=== PATIENT | female | born 1970 | race Caucasian/White ===

== ENCOUNTER 2016-05-21 11:23 | Emergency (ER) | payer MEDICAID, OTHER ==
[~2016-05-21] VITALS: Ht 160 cm; Wt 60.7 kg
[2016-05-21 11:25] VITALS: BP 116/67
[2016-05-21] MEDS ORDERED: FLUORESCEIN OPHTHALMIC 1 MG STRIP ONE (11:56)
[2016-05-21] MEDS ORDERED: PROPARACAINE OPHTH 0.5%, 15ML ONE (11:56)
== END 2016-05-21 12:27 | disposition home or self-care (01) ==
LOC: ED 12:21
DX: H10.233 Serous conjunctivitis, except viral, bilateral (principal); J01.00 Acute maxillary sinusitis, unspecified; R05 Cough; J02.9 Acute pharyngitis, unspecified; J34.89 Other specified disorders of nose and nasal sinuses
CPT/HCPCS: 99283

== ENCOUNTER 2016-07-26 06:04 | Emergency (ER) | payer MEDICAID ==
[~2016-07-26] VITALS: Ht 160 cm; Wt 57.0 kg
[2016-07-26] MEDS ORDERED: BACITRACIN ZINC OINT 500U/GM, 0.9 GM ONE (06:57)
[2016-07-26 07:36] VITALS: BP 135/82
== END 2016-07-26 07:38 | disposition home or self-care (01) ==
LOC: ED 07:35
DX: S90.822A Blister (nonthermal), left foot, initial encounter (principal); X58.XXXA Exposure to other specified factors, initial encounter; Y93.89 Activity, other specified; Y99.8 Other external cause status; Y92.89 Other specified places as the place of occurrence of the external cause
CPT/HCPCS: 99281

== ENCOUNTER 2019-03-21 22:52 | Inpatient (IN) | payer MEDICAID, OTHER ==
[~2019-03-21] VITALS: Ht 160 cm; Wt 49.5 kg
[2019-03-21] MEDS ORDERED: VANCOMYCIN PMX 1GM/200ML 200 ML IV ONE (23:45)
[2019-03-22] MEDS ORDERED: SODIUM CHLORIDE FLUSH 10ML SYR IVF ONE
[2019-03-22] MEDS ORDERED: SODIUM CHLORIDE 0.9% 1,000ML IVBOLUS ONE
[2019-03-22] MEDS ORDERED: CEFAZOLIN PMX 1GM/50ML 50 ML IV ONE
[2019-03-22] MEDS ORDERED: VANCOMYCIN PER PHARMACY MC ONE
[2019-03-22] MEDS ORDERED: LIDOCAINE-MPF 1%, 5ML INFIL ONE
[2019-03-22] MEDS ORDERED: LIDOCAINE-MPF 1%, 5ML ONE ×2 (00:18→01:34)
[2019-03-22] MEDS ORDERED: CEFAZOLIN PMX 1GM/50ML 50 ML ONE (00:19)
[2019-03-22 00:21] LABS: MEAN CORPUSCULAR HEMOGLOBIN 20.8 pg (27.0-34.8); MEAN CORPUSCULAR HGB CONC 30.4 g/dL (32.4-35.8); MEAN CORPUSCULAR VOLUME 68.3 fL (80-100); MEAN PLATELET VOLUME 6.7 fL (7.4-10.4); PLATELET COUNT 582 x10^3/uL (130-400); RED BLOOD COUNT 4.08 x10^6/uL (3.82-5.3); RED CELL DISTRIBUTION WIDTH 20.7 % (9.6-15.2)
[2019-03-22] MEDS ORDERED: KETAMINE 10 MG/ML, 20ML IV ONE (00:30)
[2019-03-22] MEDS ORDERED: PROPOFOL 10 MG/ML, 20ML IVPush ONE (00:30)
[2019-03-22 00:35] LABS: ALBUMIN 2.3 g/dL (3.4-5.0); ANION GAP 7 mmol/L (5-15); CALCIUM 8.4 mg/dL (8.5-10.1); CHLORIDE 105 mmol/L (98-107)
[2019-03-22 00:38] LABS: ALANINE AMINOTRANSFERASE 35 U/L (12-78); ALKALINE PHOSPHATASE 118 U/L (45-117); BILIRUBIN,TOTAL 0.5 mg/dL (0.2-1.0); CREATININE 0.73 mg/dL (0.55-1.02); TOTAL PROTEIN 7.5 g/dL (6.4-8.2)
[2019-03-22 00:39] LABS: BASOPHILS # (AUTO) 0.04 x10^3/uL (0-0.1); BASOPHILS % (AUTO) 0 % (0-1); EOSINOPHILS # (AUTO) 0.03 x10^3/uL (0-0.4); EOSINOPHILS % (AUTO) 0 % (1-7); INTERNATIONAL NORMALIZED RATIO 1.13 (0.93-1.1); LYMPHOCYTES # (AUTO) 1.62 x10^3/uL (1-3.4); LYMPHOCYTES % (AUTO) 10 % (22-44); MD SCAN; MONOCYTES # (AUTO) 0.46 x10^3/uL (0.2-0.8); MONOCYTES % (AUTO) 3 % (2-9); NEUTROPHILS # (AUTO) 14.25 x10^3/uL (1.8-6.8); NEUTROPHILS % (AUTO) 87 % (42-75)
--- NOTE | 2019-03-22 01:15 | NUR ---
NEURODIAGNOSTIC TECHNOLOGIST REPORTED TO [employer] THAT PT WOULD NOT SIT STILL FOR MRI. NEURODIAGNOSTIC TECHNOLOGIST RECOMENDED TRYING AGIAN IN THE MORNING. PROVIDER AND RN TAKING OVER ASSIGNMENT NOTIFIED.
--- NOTE | 2019-03-22 01:28 | NUR ---
REPORT RECEIVED FROM TINO PHIPPS. ASSUMED CARE OF PT
[2019-03-22] MEDS ORDERED: PROPOFOL 10 MG/ML, 20ML ONE (01:33)
[2019-03-22] MEDS ORDERED: KETAMINE 10 MG/ML, 20ML ONE (01:33)
[2019-03-22] MEDS ORDERED: SODIUM CHLORIDE 0.9% 1,000 ML IV SCH (01:38)
[2019-03-22] MEDS ORDERED: BISACODYL 10 MG SUPP PR PRN (02:00)
[2019-03-22] MEDS ORDERED: ONDANSETRON 2MG/ML, 2ML IVPush PRN (02:00)
[2019-03-22] MEDS ORDERED: AMPICILLIN/SULBACTAM 3 GM in SODIUM CHLORIDE 0.9% 100 ML IV ONE (02:00)
[2019-03-22] MEDS ORDERED: OXYcodone IR 5MG TABLET PO PRN (02:00)
[2019-03-22] MEDS ORDERED: ACETAMINOPHEN 325 MG TABLET PO PRN ×2 (02:00→07:30)
[2019-03-22] MEDS ORDERED: morphine SULFATE 10 MG/ML, 1ML IVPush PRN (02:00)
[2019-03-22] MEDS ORDERED: hydrALAzine 20 MG/ML, 1ML IVPush PRN (02:00)
[2019-03-22] MEDS ORDERED: ONDANSETRON ODT 4 MG PO PRN (02:00)
[2019-03-22] MEDS ORDERED: PIPERACILLIN/TAZO/PMX 3.375GM 50 ML IV SCH (02:00)
[2019-03-22] MEDS ORDERED: HEPARIN 5,000 UNITS/ML, 1ML SQ SCH (02:00)
[2019-03-22] MEDS ORDERED: VANCOMYCIN PER PHARMACY MC PRN (02:00)
[2019-03-22] MEDS ORDERED: POLYETHYLENE GLYCOL 17 GM PACKET PO PRN (02:00)
[2019-03-22] MEDS ORDERED: PROMETHAZINE 25 MG/ML, 1ML IM PRN (02:00)
[2019-03-22] MEDS ORDERED: DOCUSATE 100 MG CAPSULE PO PRN (02:00)
--- NOTE | 2019-03-22 02:14 | NUR ---
CONSCIOUS SEDATION DONE WITH A START TIME OF 0202, ENDED AT 0207. I&D PERFORMED. PT WAS GIVEN 20MG OF KETAMINE AND 30MG OF PROPOFOL BY DR. ALDRIDGE. ALL VITALS STABLE. PT TOLERATED WELL. SEE SEDATION PAPERWORK
[2019-03-22] MEDS ORDERED: PHARMACOKINETIC MONITORING MC PRN (02:30)
[2019-03-22 02:33] LABS: HCT (SEDRATE) 27.9 % (34.6-47.8)
[2019-03-22 02:34] LABS: FREE T4 (FREE THYROXINE) 1.52 ng/dL (0.76-1.46)
--- NOTE | 2019-03-22 02:37 | NUR ---
GEMMA MONSIVAIS. REPORT GIVEN TO TINO CHACON
[2019-03-22 02:50] VITALS: BP 139/90
[2019-03-22] MEDS ORDERED: MAGNESIUM SULFATE PMX 2GM/50ML 50 ML IV ONE (07:30)
[2019-03-22] MEDS: HEPARIN 5,000 UNITS/ML, 1ML SQ SCH ×2 (07:30→19:06)
[2019-03-22 07:32] VITALS: BP 131/78
[2019-03-22] MEDS: AMPICILLIN/SULBACTAM 3 GM in SODIUM CHLORIDE 0.9% 100 ML IV SCH ×2 (11:29→19:35)
[2019-03-22 13:16] VITALS: BP 154/88
[2019-03-22] MEDS: VANCOMYCIN PMX 1GM/200ML 200 ML IVPB SCH (14:43)
[2019-03-22] MEDS ORDERED: LORazepam 0.5MG TABLET PO PRN (16:30)
[2019-03-22] MEDS ORDERED: LORazepam 1MG TABLET PO PRN ×4 (16:30)
[2019-03-22 18:55] VITALS: BP 147/84
[2019-03-22] MEDS ORDERED: OMNIPAQUE 350 MG/ML, 100ML BOTTLE ONE (19:01)
[2019-03-23 01:36] VITALS: BP 168/96
[2019-03-23] MEDS ORDERED: SODIUM CHLORIDE 0.9% 1,000 ML IV SCH (01:38)
[2019-03-23] MEDS: VANCOMYCIN PMX 1GM/200ML 200 ML IVPB SCH ×2 (02:02→14:15)
[2019-03-23] MEDS: AMPICILLIN/SULBACTAM 3 GM in SODIUM CHLORIDE 0.9% 100 ML IV SCH ×3 (04:18→19:44)
[2019-03-23 07:20] VITALS: BP 151/93
[2019-03-23] MEDS: HEPARIN 5,000 UNITS/ML, 1ML SQ SCH ×2 (07:30→19:44)
[2019-03-23] MEDS: CARVEDILOL 3.125 MG TABLET PO SCH ×2 (09:29→17:27)
[2019-03-23] MEDS: SODIUM CHLORIDE 0.9% 1,000 ML IV SCH (11:09)
[2019-03-23 12:23] VITALS: BP 150/98
[2019-03-23 19:10] VITALS: BP 150/98
[2019-03-23] MEDS: OXYcodone IR 5MG TABLET PO PRN ×2 (19:44→23:48)
[2019-03-24] MEDS: VANCOMYCIN PMX 1GM/200ML 200 ML IVPB SCH (01:43)
[2019-03-24 03:11] VITALS: BP 151/70
[2019-03-24] MEDS: OXYcodone IR 5MG TABLET PO PRN ×4 (03:59→22:57)
[2019-03-24] MEDS: AMPICILLIN/SULBACTAM 3 GM in SODIUM CHLORIDE 0.9% 100 ML IV SCH ×3 (03:59→20:03)
[2019-03-24 05:16] LABS: BASOPHILS # (AUTO) 0.06 x10^3/uL (0-0.1); BASOPHILS % (AUTO) 1 % (0-1); EOSINOPHILS # (AUTO) 0.17 x10^3/uL (0-0.4); EOSINOPHILS % (AUTO) 2 % (1-7); LYMPHOCYTES % (AUTO) 14 % (22-44); MD NO; MEAN CORPUSCULAR HEMOGLOBIN 21.1 pg (27.0-34.8); MEAN CORPUSCULAR HGB CONC 30.8 g/dL (32.4-35.8); MEAN CORPUSCULAR VOLUME 68.5 fL (80-100); MEAN PLATELET VOLUME 7.3 fL (7.4-10.4); MONOCYTES # (AUTO) 0.52 x10^3/uL (0.2-0.8); MONOCYTES % (AUTO) 5 % (2-9); NEUTROPHILS % (AUTO) 79 % (42-75); PLATELET COUNT 568 x10^3/uL (130-400); RED BLOOD COUNT 4.38 x10^6/uL (3.82-5.3); RED CELL DISTRIBUTION WIDTH 21.2 % (9.6-15.2)
[2019-03-24 05:17] LABS: ANION GAP 10 mmol/L (5-15); CALCIUM 7.9 mg/dL (8.5-10.1); CHLORIDE 106 mmol/L (98-107)
[2019-03-24 06:11] VITALS: BP 136/76
[2019-03-24] MEDS: CARVEDILOL 3.125 MG TABLET PO SCH ×2 (06:13→17:50)
[2019-03-24 06:53] VITALS: BP 141/82
[2019-03-24] MEDS: HEPARIN 5,000 UNITS/ML, 1ML SQ SCH ×2 (07:48→20:03)
[2019-03-24 12:10] VITALS: BP 146/77
[2019-03-24] MEDS: LORazepam 2 MG/ML, 1ML IVPush PRN (12:20)
[2019-03-24] MEDS ORDERED: POTASSIUM CHLORIDE 10% 40 MEQ/30 ML UDC PO ONE (12:30)
[2019-03-24] MEDS ORDERED: MORPHINE SULFATE 4 MG/ML, 1ML IV PRN (12:30)
[2019-03-24 13:14] LABS: VANCOMYCIN,TROUGH 8.2 mcg/mL (5.0-10.0)
[2019-03-24] MEDS: VANCOMYCIN 1,200 MG in SODIUM CHLORIDE 0.9% 250 ML IV SCH (16:03)
[2019-03-24 17:44] VITALS: BP 158/94
[2019-03-24] MEDS: SODIUM CHLORIDE 0.9% 1,000 ML IV SCH (20:03)
[2019-03-24 21:57] VITALS: BP 155/83
[2019-03-25 00:57] VITALS: BP 149/91
[2019-03-25] MEDS: VANCOMYCIN 1,200 MG in SODIUM CHLORIDE 0.9% 250 ML IV SCH ×2 (03:05→17:38)
[2019-03-25] MEDS: AMPICILLIN/SULBACTAM 3 GM in SODIUM CHLORIDE 0.9% 100 ML IV SCH ×2 (05:05→12:35)
[2019-03-25 05:52] VITALS: BP 151/77
[2019-03-25] MEDS: CARVEDILOL 3.125 MG TABLET PO SCH ×2 (05:53→17:37)
[2019-03-25] MEDS: HEPARIN 5,000 UNITS/ML, 1ML SQ SCH ×2 (07:30→19:58)
[2019-03-25 08:01] VITALS: BP 142/88
[2019-03-25] MEDS: OXYcodone IR 5MG TABLET PO PRN ×2 (09:47→19:52)
[2019-03-25] MEDS ORDERED: GADOTERATE 10 MMOL/20 ML SYR ONE (11:00)
[2019-03-25] MEDS ORDERED: MEPERIDINE/PF 100 MG/ML ONE (12:25)
[2019-03-25] MEDS ORDERED: HALOPERIDOL 5 MG/ML ONE (12:46)
[2019-03-25] MEDS ORDERED: OXYcodone 5 MG/5 ML ORAL.SOL UDC PO PRN (13:00)
[2019-03-25] MEDS ORDERED: ONDANSETRON 2MG/ML, 2ML IV PRN (13:00)
[2019-03-25] MEDS ORDERED: MEPERIDINE/PF 25MG/ML,1ML IVPush PRN (13:00)
[2019-03-25 15:25] VITALS: BP 119/80
[2019-03-25] MEDS: SODIUM CHLORIDE 0.9% 1,000 ML IV SCH (17:44)
[2019-03-25 19:53] VITALS: BP 131/69
[2019-03-26] MEDS: OXYcodone IR 5MG TABLET PO PRN ×6 (00:07→23:19)
[2019-03-26 03:07] VITALS: BP 147/86
[2019-03-26 05:30] VITALS: BP 145/83
[2019-03-26] MEDS: VANCOMYCIN 1,200 MG in SODIUM CHLORIDE 0.9% 250 ML IV SCH ×2 (05:32→19:40)
[2019-03-26] MEDS: CARVEDILOL 3.125 MG TABLET PO SCH ×2 (05:33→18:45)
[2019-03-26] MEDS: HEPARIN 5,000 UNITS/ML, 1ML SQ SCH ×2 (07:30→19:30)
[2019-03-26 07:36] VITALS: BP 122/79
[2019-03-26] MEDS: LORazepam 2 MG/ML, 1ML IVPush PRN (11:19)
[2019-03-26 13:47] VITALS: BP 129/85
[2019-03-26] MEDS: SODIUM CHLORIDE 0.9% 1,000 ML IV SCH (18:45)
[2019-03-26 19:26] LABS: ANION GAP 6 mmol/L (5-15); CALCIUM 7.9 mg/dL (8.5-10.1); CHLORIDE 105 mmol/L (98-107); CREATININE 0.56 mg/dL (0.55-1.02)
[2019-03-26 19:35] LABS: MD YES; MEAN CORPUSCULAR HEMOGLOBIN 21.2 pg (27.0-34.8); MEAN CORPUSCULAR HGB CONC 31.2 g/dL (32.4-35.8); MEAN CORPUSCULAR VOLUME 68.1 fL (80-100); MEAN PLATELET VOLUME 6.8 fL (7.4-10.4); PLATELET COUNT 476 x10^3/uL (130-400); RED BLOOD COUNT 4.21 x10^6/uL (3.82-5.3); RED CELL DISTRIBUTION WIDTH 21.5 % (9.6-15.2)
[2019-03-26 20:15] VITALS: BP 151/87
[2019-03-26 20:16] LABS: ANISOCYTOSIS 1+; BAND#(MANUAL) 0.26 x10^3/uL; BANDS%(MANUAL) 6 % (0-7); EOS#(MANUAL) 0.09 x10^3/uL (0.0-0.4); EOS% (MANUAL) 2 % (1-7); HYPOCHROMIA 1+; LYMPH#(MANUAL) 0.56 x10^3/uL (1-3.4); LYMPHS% (MANUAL) 13 % (22-44); MONOS% (MANUAL) 7 % (2-9); SEGS% (MANUAL) 72 % (42-75)
[2019-03-26 20:17] LABS: <PLATELET ESTIMATE> ADEQUATE; <PLT MORPHOLOGY> NORMAL PLT MORPH
[2019-03-27 00:26] LABS: AMPHETAMINE SCREEN, URINE Negative (Negative); BARBITURATE SCREEN, URINE Negative (Negative); BENZODIAZEPINE SCREEN, URINE Negative (Negative); CANNABINOID SCREEN, URINE Negative (Negative); COCAINE SCREEN, URINE Negative (Negative); METHADONE SCREEN, URINE Negative (Negative); OPIATE SCREEN, URINE Positive (Negative)
[2019-03-27 02:24] VITALS: BP 138/81
[2019-03-27] MEDS: OXYcodone IR 5MG TABLET PO PRN ×7 (04:21→22:41)
[2019-03-27 05:58] VITALS: BP 135/76
[2019-03-27] MEDS: CARVEDILOL 3.125 MG TABLET PO SCH ×2 (06:00→17:55)
[2019-03-27] MEDS: VANCOMYCIN 1,300 MG in SODIUM CHLORIDE 0.9% 250 ML IV SCH ×2 (06:00→17:55)
[2019-03-27 07:26] VITALS: BP 127/75
[2019-03-27] MEDS: HEPARIN 5,000 UNITS/ML, 1ML SQ SCH ×2 (07:30→19:30)
[2019-03-27] MEDS ORDERED: LORazepam 0.5MG TABLET PO PRN (08:00)
[2019-03-27 09:02] LABS: BASOPHILS # (AUTO) 0.02 x10^3/uL (0-0.1); BASOPHILS % (AUTO) 0 % (0-1); EOSINOPHILS # (AUTO) 0.14 x10^3/uL (0-0.4); EOSINOPHILS % (AUTO) 3 % (1-7); LYMPHOCYTES # (AUTO) 1.14 x10^3/uL (1-3.4); LYMPHOCYTES % (AUTO) 24 % (22-44); MD NO; MEAN CORPUSCULAR HEMOGLOBIN 21.1 pg (27.0-34.8); MEAN CORPUSCULAR HGB CONC 30.6 g/dL (32.4-35.8); MEAN CORPUSCULAR VOLUME 69.1 fL (80-100); MEAN PLATELET VOLUME 6.7 fL (7.4-10.4); MONOCYTES # (AUTO) 0.46 x10^3/uL (0.2-0.8); MONOCYTES % (AUTO) 10 % (2-9); NEUTROPHILS # (AUTO) 2.95 x10^3/uL (1.8-6.8); NEUTROPHILS % (AUTO) 63 % (42-75); PLATELET COUNT 437 x10^3/uL (130-400); RED CELL DISTRIBUTION WIDTH 21.9 % (9.6-15.2)
[2019-03-27 09:08] LABS: ANION GAP 6 mmol/L (5-15); CALCIUM 8.1 mg/dL (8.5-10.1); CHLORIDE 107 mmol/L (98-107)
[2019-03-27] MEDS: DAPTOMYCIN 350 MG in SODIUM CHLORIDE 0.9% 100 ML IVPB SCH (11:00)
[2019-03-27] MEDS: SODIUM CHLORIDE 0.9% 1,000 ML IV SCH (11:01)
[2019-03-27 12:43] VITALS: BP 135/78
[2019-03-27] MEDS: ACETAMINOPHEN 325 MG TABLET PO SCH ×2 (14:33→21:41)
[2019-03-27 19:29] VITALS: BP 138/88
[2019-03-27] MEDS: KETOROLAC 30 MG/1 ML IV PRN (21:41)
[2019-03-28] MEDS: OXYcodone IR 5MG TABLET PO PRN ×7 (00:12→23:05)
[2019-03-28 00:52] VITALS: BP 130/82
[2019-03-28] MEDS: ACETAMINOPHEN 325 MG TABLET PO SCH ×4 (02:00→19:35)
[2019-03-28 05:41] VITALS: BP 155/80
[2019-03-28] MEDS: VANCOMYCIN 1,300 MG in SODIUM CHLORIDE 0.9% 250 ML IV SCH (05:43)
[2019-03-28] MEDS: CARVEDILOL 3.125 MG TABLET PO SCH (05:43)
[2019-03-28] MEDS: KETOROLAC 30 MG/1 ML IV PRN ×3 (05:44→19:40)
[2019-03-28] MEDS: HEPARIN 5,000 UNITS/ML, 1ML SQ SCH ×2 (07:30→19:30)
[2019-03-28] MEDS: SODIUM CHLORIDE 0.9% 1,000 ML IV SCH (08:37)
[2019-03-28] MEDS: RIFAMPIN 300 MG CAPSULE PO SCH (08:37)
[2019-03-28 08:45] VITALS: BP 123/80
[2019-03-28 09:49] LABS: C-REACTIVE PROTEIN, QUANT 3.5 mg/dL (0.02-0.49)
[2019-03-28] MEDS: DAPTOMYCIN 350 MG in SODIUM CHLORIDE 0.9% 100 ML IVPB SCH (11:19)
[2019-03-28 15:55] VITALS: BP 144/78
[2019-03-28] MEDS: CARVEDILOL 6.25 MG TABLET PO SCH (18:04)
[2019-03-29 01:10] VITALS: BP 128/77
[2019-03-29] MEDS: ACETAMINOPHEN 325 MG TABLET PO SCH ×5 (01:30→20:25)
[2019-03-29] MEDS: SODIUM CHLORIDE 0.9% 1,000 ML IV SCH ×2 (01:37→08:00)
[2019-03-29] MEDS: OXYcodone IR 5MG TABLET PO PRN ×5 (03:51→20:25)
[2019-03-29] MEDS: CARVEDILOL 6.25 MG TABLET PO SCH ×2 (06:03→17:28)
[2019-03-29 06:05] VITALS: BP 164/102
[2019-03-29] MEDS: HEPARIN 5,000 UNITS/ML, 1ML SQ SCH ×2 (07:19→12:56)
[2019-03-29 07:57] VITALS: BP 147/80
[2019-03-29] MEDS: RIFAMPIN 300 MG CAPSULE PO SCH (07:59)
[2019-03-29 14:26] VITALS: BP 155/90
[2019-03-29] MEDS: KETOROLAC 30 MG/1 ML IV PRN ×2 (17:28→23:28)
[2019-03-29] MEDS: DAPTOMYCIN 350 MG in SODIUM CHLORIDE 0.9% 100 ML IVPB SCH (18:01)
[2019-03-29 18:58] VITALS: BP 149/88
[2019-03-30] MEDS: OXYcodone IR 5MG TABLET PO PRN ×6 (00:33→20:22)
[2019-03-30 02:42] VITALS: BP 152/96
[2019-03-30] MEDS: ACETAMINOPHEN 325 MG TABLET PO SCH ×4 (03:00→20:22)
[2019-03-30] MEDS: CARVEDILOL 6.25 MG TABLET PO SCH ×2 (05:40→17:15)
[2019-03-30] MEDS: KETOROLAC 30 MG/1 ML IV PRN ×4 (05:40→23:15)
[2019-03-30] MEDS: HEPARIN 5,000 UNITS/ML, 1ML SQ SCH ×2 (06:38→19:30)
[2019-03-30 08:13] VITALS: BP 157/98
[2019-03-30] MEDS: RIFAMPIN 300 MG CAPSULE PO SCH (08:34)
[2019-03-30] MEDS: SODIUM CHLORIDE 0.9% 1,000 ML IV SCH (08:34)
[2019-03-30 14:29] VITALS: BP 169/93
[2019-03-30] MEDS: DAPTOMYCIN 350 MG in SODIUM CHLORIDE 0.9% 100 ML IVPB SCH (17:38)
[2019-03-30 18:41] VITALS: BP 157/99
[2019-03-30] MEDS ORDERED: TRAZODONE 50MG TABLET PO SCH (21:00)
[2019-03-31 00:12] VITALS: BP 154/88
[2019-03-31] MEDS: OXYcodone IR 5MG TABLET PO PRN ×2 (01:59→08:18)
[2019-03-31] MEDS: ACETAMINOPHEN 325 MG TABLET PO SCH ×2 (01:59→08:18)
[2019-03-31 04:32] VITALS: BP 136/91
[2019-03-31 05:57] LABS: CHLORIDE 106 mmol/L (98-107)
[2019-03-31] MEDS ORDERED: OMNIPAQUE 350 MG/ML, 100ML BOTTLE ONE (06:00)
[2019-03-31 06:05] LABS: ALANINE AMINOTRANSFERASE 32 U/L (12-78); ALBUMIN 2.4 g/dL (3.4-5.0); ALKALINE PHOSPHATASE 127 U/L (45-117); ANION GAP 6 mmol/L (5-15); BILIRUBIN,TOTAL 0.3 mg/dL (0.2-1.0); CALCIUM 8.6 mg/dL (8.5-10.1); CREATININE 0.58 mg/dL (0.55-1.02); TOTAL PROTEIN 7.7 g/dL (6.4-8.2)
[2019-03-31] MEDS: KETOROLAC 30 MG/1 ML IV PRN (06:05)
[2019-03-31] MEDS: CARVEDILOL 6.25 MG TABLET PO SCH (06:31)
[2019-03-31] MEDS: HEPARIN 5,000 UNITS/ML, 1ML SQ SCH (07:30)
[2019-03-31] MEDS ORDERED: CALCIUM CHLORIDE 10%, 10ML SYR ONE (08:00)
[2019-03-31] MEDS ORDERED: EPINEPHRINE SYRINGE 0.1 MG/ML, 10ML ONE ×2 (08:00→09:30)
[2019-03-31 08:15] VITALS: BP 135/99
[2019-03-31] MEDS: RIFAMPIN 300 MG CAPSULE PO SCH (08:19)
[2019-03-31] MEDS ORDERED: CALCIUM CHLORIDE 13.6 MEQ/10 ML ONE (09:30)
[2019-03-31] MEDS ORDERED: CODE BLUE RESPONSE XX ONE (09:30)
[2019-03-31] MEDS ORDERED: SODIUM BICARBONATE 1 MEQ/ML, 50ML VIAL ONE (09:30)
== END 2019-03-31 14:41 | disposition expired | DRG 854 ==
LOC: ED 03-22 01:58 → EDIP 03-22 02:50 → 3N 03-22 02:51
PROVIDERS: ADMIT Emergency Medicine; ATTEND Family Medicine
PROC: 0K960ZZ Drainage of Left Shoulder Muscle, Open Approach (ICD-10-PCS; 2019-03-25)
PROC: 0K950ZZ Drainage of Right Shoulder Muscle, Open Approach (ICD-10-PCS; 2019-03-25)
PROC: 02HV33Z Insertion of Infusion Device into Superior Vena Cava, Percutaneous Approach (ICD-10-PCS; principal; 2019-03-29)
PROC: B5181ZA Fluoroscopy of Superior Vena Cava using Low Osmolar Contrast, Guidance (ICD-10-PCS; 2019-03-29)
PROC: B548ZZA Ultrasonography of Superior Vena Cava, Guidance (ICD-10-PCS; 2019-03-29)
DX: A41.9 Sepsis, unspecified organism (principal); L03.113 Cellulitis of right upper limb; E46 Unspecified protein-calorie malnutrition; Z68.1 Body mass index [BMI] 19.9 or less, adult; F11.20 Opioid dependence, uncomplicated; J81.1 Chronic pulmonary edema; M46.22 Osteomyelitis of vertebra, cervical region; L02.512 Cutaneous abscess of left hand; L02.511 Cutaneous abscess of right hand; B95.1 Streptococcus, group B, as the cause of diseases classified elsewhere; B95.62 Methicillin resistant Staphylococcus aureus infection as the cause of diseases classified elsewhere; D50.9 Iron deficiency anemia, unspecified; E83.42 Hypomagnesemia; F15.10 Other stimulant abuse, uncomplicated; G47.00 Insomnia, unspecified; I10 Essential (primary) hypertension; I46.9 Cardiac arrest, cause unspecified; Z86.79 Personal history of other diseases of the circulatory system; Z90.710 Acquired absence of both cervix and uterus; Z98.1 Arthrodesis status
CPT/HCPCS: 36415; 36573; 71045; 71275; 72125; 72128; 72132; 72156; 72157; 80048; 80053; 80074; 80202; 80307; 82550; 82728; 83036; 83540; 83550; 83605; 83735; 84439; 84443; 84466; 85025; 85610; 85651; 85730; 86140; 87040; 87070; 87075; 87077; 87102; 87116; 87147; 87176; 87186; 87205; 87206; 87806; 92950; 93005; 93306; 93356; 96365; 97162; 99152; G0378; J0295; J0690; J0878; J1885; J2543; J3370; Q9967; A9575; C1751; G0475; J2060; J2175; J2270; J3475; J7030; J7050